=== PATIENT | female | born 1995 | race Caucasian/White ===

== ENCOUNTER 2017-05-24 18:18 | Emergency (ER) | payer SELFPAY ==
[2017-05-24 18:23] VITALS: BMI 26.6
[2017-05-24 18:25] VITALS: BP 132/80; PULSE 81; RESP 17; TEMP 98.8; O2SAT 97
[2017-05-24 18:57] LABS: RBC URINE 1271 /hpf (0-3); URINE BACTERIA MOD (<OCC); URINE BILIRUBIN NEGATIVE (NEGATIVE); URINE BLOOD 3+ (NEGATIVE); URINE GLUCOSE (UA) NORMAL (Normal); URINE KETONE NEGATIVE (NEGATIVE); URINE LEUKOCYTE ESTERASE 2+ Leu/uL (Negative); URINE PROTEIN 2+ mg/dL (NEGATIVE); URINE UROBILINOGEN NORMAL mg/dL (0.2-1.0); WBC CLUMPS MANY /hpf; WBC URINE 2273 /hpf (0-5)
[2017-05-24 19:10] LABS: URINE COLOR YELLOW (YELLOW)
[2017-05-24] MEDS ORDERED: cefTRIAXone (Rocephin) 250 mg Inj IM STA (19:39)
--- NOTE | 2017-05-24 20:22 | C.PDOC ---
History Of Present Illness 22 year old female presents to the ED with complaints of dysuria and associated hematuria for two days. Patient reports vaginal discharge described as "yellow and foul smelling." She denies abdominal pain, vaginal bleeding, travel, back pain, chest pain, SOB, fever, nausea, or vomiting. Time Seen by Provider: 05/24/17 18:45 Chief Complaint (Nursing): Female Genitourinary History Per: Patient History/Exam Limitations: no limitations Onset/Duration Of Symptoms: Days (2 days ) Current Symptoms Are (Timing): Still Present Pain Scale Rating Of: 0 Associated Symptoms: Urinary Symptoms (dysuria and hematuria ). denies: Fever, Chills, Nausea, Vomiting Recent travel outside of the [place]: No Abnormal Vaginal Bleeding: No Past Medical History Reviewed: Historical Data, Nursing Documentation, Vital Signs Vital Signs: Last Vital Signs Temp 98.8 F 05/24/17 18:23 Pulse 81 05/24/17 18:23 Resp 17 05/24/17 18:23 BP 132/80 05/24/17 18:23 Pulse Ox 97 05/24/17 20:44 - Medical History PMH: No Chronic Diseases Family History: States: No Known Family Hx - Social History Hx Tobacco Use: Yes Hx Alcohol Use: Yes (every other day) Hx Substance Use: No - Immunization History Hx Tetanus Toxoid Vaccination: No Hx Influenza Vaccination: No Hx Pneumococcal Vaccination: No Review Of Systems Except As Marked, All Systems Reviewed And Found Negative. Constitutional: Negative for: Fever, Chills Cardiovascular: Negative for: Chest Pain, Palpitations Respiratory: Negative for: Cough, Shortness of Breath Gastrointestinal: Negative for: Nausea, Vomiting, Abdominal Pain, Diarrhea Genitourinary: Positive for: Vaginal Discharge ("yellow and foul discharge" ) Physical Exam - Physical Exam Appears: Non-toxic, No Acute Distress Skin: Warm, Dry Head: Atraumatic, Normacephalic Eye(s): bilateral: Normal Inspection, PERRL, EOMI Oral Mucosa: Moist Neck: Normal ROM, Supple Chest: Symmetrical, No Deformity Cardiovascular: Rhythm Regular, No Friction Rub, No Murmur Respiratory: Normal Breath Sounds, No Rales, No Rhonchi, No Stridor, No Wheezing Gastrointestinal/Abdominal: Soft, No Tenderness, No Distention, No Guarding, No Rebound Pelvic: Other (Deferred by patient) Neurological/Psych: Oriented x3, Normal Speech, Normal Motor Gait: Steady ED Course And Treatment O2 Sat by Pulse Oximetry: 97 (room air ) Pulse Ox Interpretation: Normal Medical Decision Making Medical Decision Making: Labs were ordered UA was (+) for UTI. Urine culture was sent. The patient is concerned for possible vaginitis and was instructed to have all partners tested. Rocephin and Zithromax ordered. Disposition - Disposition Referrals: [facility] [Outside] Disposition: HOME/ ROUTINE Disposition Time: 20:19 Condition: GOOD Additional Instructions: Follow up with the OBGYN within 1-2 days, Return if worsened. 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 - Scribe Statement The provider has reviewed the documentation as recorded by the Scribe Ann Ortiz All medical record entries made by the Akash were at my direction and personally dictated by me. I have reviewed the chart and agree that the record accurately reflects my personal performance of the history, physical exam, medical decision making, and the department course for this patient. I have also personally directed, reviewed, and agree with the discharge instructions and disposition.
== END 2017-05-24 20:31 | disposition home or self-care (01) ==
LOC: C.ER 18:18
DX: N39.0 Urinary tract infection, site not specified (principal)
CPT/HCPCS: 81001; 84703; 87086; 87491; 87591; 96372; 99284; J0696

== ENCOUNTER 2017-11-21 11:16 | Emergency (ER) | payer OTHER ==
[2017-11-21 11:17] VITALS: BMI 26.6
[2017-11-21 11:33] VITALS: RESP 18
[2017-11-21] MEDS ORDERED: Lidocaine 1% Inj (20ml) INFIL ONE (12:12)
[2017-11-21] MEDS ORDERED: Lidocaine 2% Inj (20ml) ONE (12:17)
[2017-11-21] MEDS ORDERED: Oxycodone/Acetaminophen 5/325 mg Tab PO STA (12:29)
[2017-11-21] MEDS ORDERED: Oxycodone/Acetaminophen 5/325 mg Tab ONE (12:33)
--- NOTE | 2017-11-21 13:43 | C.PDOC ---
History Of Present Illness 22 y/o female c/o pain and swelling to buttock x 2 days, unable to sit. no fever , no prior episodes, no hx diabetes. Time Seen by Provider: 11/21/17 12:08 Chief Complaint (Nursing): Abnormal Skin Integrity History/Exam Limitations: no limitations Onset/Duration Of Symptoms: Days (2) Location Of Injury: Left: Buttock Quality Of Symptoms: Painful, Swollen. denies: Draining Severity: Moderate Past Medical History Reviewed: Historical Data, Nursing Documentation, Vital Signs Vital Signs: Last Vital Signs Temp 98.3 F 11/21/17 13:52 Pulse 60 11/21/17 13:52 Resp 18 11/21/17 13:52 BP 128/83 11/21/17 13:52 Pulse Ox 99 11/21/17 15:35 - Medical History PMH: No Chronic Diseases Family History: States: Unknown Family Hx - Social History Hx Tobacco Use: Yes Hx Alcohol Use: Yes (every other day) Hx Substance Use: No - Immunization History Hx Tetanus Toxoid Vaccination: No Hx Influenza Vaccination: No Hx Pneumococcal Vaccination: No Review Of Systems Constitutional: Negative for: Fever, Chills Gastrointestinal: Negative for: Abdominal Pain Skin: Positive for: Lesions (swelling left buttock) Neurological: Negative for: Weakness, Numbness Physical Exam - Physical Exam Appears: Non-toxic, Other (uncomfortable from pain. ) Skin: Warm, Dry, Other (2 cm wide x 4 cm long indurated fluctuant tender area to left of proximal gluteal crease. no drainage. ) Head: Atraumatic, Normacephalic Gastrointestinal/Abdominal: Soft, No Tenderness Neurological/Psych: Oriented x3, Normal Speech, Normal Cognition ED Course And Treatment O2 Sat by Pulse Oximetry: 99 - Incision & Drainage Of Abscess Anesthesia: Lidocaine 2% Prep Used: Sterile Water, Betadine Procedure: Incised W/Scalpel Blade#: (11), Drained Pus, Irrigated Cavity W/ Saline, Probed To Break Up Loculations, Packed W/Gauze Medical Decision Making Medical Decision Making: left sided pilonidal abscess; i and d done,, pt tolerated procedure well, packing inserted, pt to return to ED in 2 days for wound check, started on augmentin. Disposition Counseled Patient/Family Regarding: Diagnosis, Need For Followup, Rx Given - Disposition Disposition: HOME/ ROUTINE Disposition Time: 13:40 Condition: IMPROVED Additional Instructions: Please keep area clean and dry. Return to ER in 2 days for a wound check. Motrin for pain every 6 hours if needed. Prescriptions: Amoxicillin/Clavulanate [Augmentin 875 MG-125 MG] 1 tab PO BID #14 tab Ibuprofen [Motrin] 600 mg PO TID #30 tab Instructions: Abscess Incision and Drainage (DC), Pilonidal Cyst (DC) Forms: [facility] (Yoruba), General Discharge Instructions - Clinical Impression Clinical Impression: Pilonidal abscess
[2017-11-21] MEDS ORDERED: Amoxicillin-Clav 875-125 mg Tab PO STA (13:45)
[2017-11-21] MEDS ORDERED: Amoxicillin-Clav 875-125 mg Tab PO ONE (13:47)
[2017-11-21 13:58] VITALS: BP 128/83; PULSE 60; TEMP 98.3
[2017-11-21 15:27] VITALS: O2SAT 99
== END 2017-11-21 13:52 | disposition home or self-care (01) ==
LOC: C.ER 11:16
DX: L05.01 Pilonidal cyst with abscess (principal)
CPT/HCPCS: 10080; 96372; 99284; J1885

== ENCOUNTER 2017-11-23 15:18 | Emergency (ER) | payer OTHER ==
[2017-11-23 15:18] VITALS: BMI 26.6
[2017-11-23 15:34] VITALS: BP 146/89; PULSE 97; RESP 18; TEMP 99.3; O2SAT 99
--- NOTE | 2017-11-23 15:49 | C.PDOC ---
History Of Present Illness 22-year-old female, presents to the emergency department for wound check, patient is s/p left buttock I&D two days ago. She is taking antibiotics. denies fever, increased pain or discharge from wound. Time Seen by Provider: 11/23/17 15:40 Chief Complaint (Nursing): Wound Check History Per: Patient History/Exam Limitations: no limitations Onset/Duration Of Symptoms: Days Ago (2) Past Medical History Reviewed: Historical Data, Nursing Documentation, Vital Signs Vital Signs: Last Vital Signs Temp 99.3 F 11/23/17 15:33 Pulse 97 H 11/23/17 15:33 Resp 18 11/23/17 15:33 BP 146/89 11/23/17 15:33 Pulse Ox 99 11/23/17 16:28 Family History: States: No Known Family Hx - Social History Hx Tobacco Use: Yes Hx Alcohol Use: Yes (every other day) Hx Substance Use: No - Immunization History Hx Tetanus Toxoid Vaccination: No Hx Influenza Vaccination: No Hx Pneumococcal Vaccination: No Review Of Systems Musculoskeletal: Positive for: Other (Left buttock wound check) Physical Exam - Physical Exam Appears: Well, Non-toxic, No Acute Distress Skin: Normal Color, Warm, Other ((+) Left gluteus small open wound with packing , no erythema, no flactulance, no discharges noted.) Extremity: Normal ROM Neurological/Psych: Oriented x3, Normal Speech ED Course And Treatment O2 Sat by Pulse Oximetry: 99 (RA) Pulse Ox Interpretation: Normal Progress Note: On re-eval, pt is afebrile, hemodynamicaly stable. Non-toxic. Abd: benign. Skin: wound cleaned, packing removed from left gluteal wound nad irrigated. No dischages noted, no erythema, no flactulance. Pt advisec ont. abx. ref. to F/u with PMD, Surgery in 2-3 days for re-eavl. reutrn if any worsening or new changes. Disposition - Disposition Disposition: HOME/ ROUTINE Disposition Time: 15:47 Condition: STABLE Instructions: Abscess Incision and Drainage (DC) Forms: [employer] (Bangladeshi) - Clinical Impression Clinical Impression: Pilonidal abscess - Scribe Statement The provider has reviewed the documentation as recorded by the Scribe (Gita Lamar) All medical record entries made by the Scribe were at my direction and personally dictated by me. I have reviewed the chart and agree that the record accurately reflects my personal performance of the history, physical exam, medical decision making, and the department course for this patient. I have also personally directed, reviewed, and agree with the discharge instructions and disposition.
== END 2017-11-23 16:01 | disposition home or self-care (01) ==
LOC: C.ER 15:18
DX: L05.01 Pilonidal cyst with abscess (principal); Z51.89 Encounter for other specified aftercare; Z72.0 Tobacco use

== ENCOUNTER 2018-04-06 18:46 | Emergency (ER) | payer OTHER ==
[2018-04-06 18:47] VITALS: BMI 26.6
[2018-04-06 18:55] VITALS: BP 151/92; PULSE 88; RESP 16; TEMP 98; O2SAT 98
--- NOTE | 2018-04-06 19:27 | C.PDOC ---
History Of Present Illness 23 year old female patient with hx of pilondial cyst presents to the ER with complaints of pain and swelling on her top left intergluteal cleft for 2 days. The site started to drain during her ER visit today and some pus and blood was drained out. no fever or chills. Time Seen by Provider: 04/06/18 19:02 Chief Complaint (Nursing): Abnormal Skin Integrity History Per: Patient History/Exam Limitations: no limitations Onset/Duration Of Symptoms: Days Past Medical History Reviewed: Historical Data, Nursing Documentation, Vital Signs Vital Signs: Last Vital Signs Temp 98 F 04/06/18 18:53 Pulse 88 04/06/18 18:53 Resp 16 04/06/18 18:53 BP 151/92 H 04/06/18 18:53 Pulse Ox 98 04/07/18 02:37 - Medical History PMH: Gastritis Family History: States: Unknown Family Hx - Social History Hx Tobacco Use: Yes Hx Alcohol Use: Yes (every other day) Hx Substance Use: No - Immunization History Hx Tetanus Toxoid Vaccination: No Hx Influenza Vaccination: No Hx Pneumococcal Vaccination: No Review Of Systems Constitutional: Negative for: Fever, Chills Skin: Positive for: Other (top left intergluteal cleft abscess) Neurological: Negative for: Weakness, Numbness Physical Exam - Physical Exam Appears: Non-toxic, No Acute Distress Skin: No Rash, Other (2 cm draining abscess upper left intergluteal cleft, tender) Head: Atraumatic, Normacephalic Gastrointestinal/Abdominal: Bowel Sounds, Soft, No Tenderness, No Distention Neurological/Psych: Oriented x3, Normal Speech, Normal Cognition ED Course And Treatment O2 Sat by Pulse Oximetry: 98 (RA) Pulse Ox Interpretation: Normal Progress Note: Impression: 23 year old female patient with abscess in her top left intergluteal cleft. Patient is referred to surgery for definitive treatment. Medical Decision Making Medical Decision Making: hx of left pilonidal cyst in past, now spontaneously drainiing. has not seen gen sx. d/c with antibiotics and surgery f/u Disposition Counseled Patient/Family Regarding: Diagnosis, Need For Followup, Rx Given - Disposition Referrals: Gatito Gutierrez MD [Staff Provider] - Disposition: HOME/ ROUTINE Disposition Time: 19:24 Condition: GOOD Additional Instructions: Please continue warm soaks to left buttock for several days to assist with further drainage. Please follow up with Dr Gutierrez (general surgeon) to discuss options for getting rid of cyst. Take antibiotics as prescribed and Tylenol for pain if needed. 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 - Scribe Statement The provider has reviewed the documentation as recorded by the Akash Damon Do All medical record entries made by the Scribe were at my direction and personally dictated by me. I have reviewed the chart and agree that the record accurately reflects my personal performance of the history, physical exam, medical decision making, and the department course for this patient. I have also personally directed, reviewed, and agree with the discharge instructions and disposition.
== END 2018-04-06 19:34 | disposition home or self-care (01) ==
LOC: C.ER 18:46
DX: L05.01 Pilonidal cyst with abscess (principal)

== ENCOUNTER 2018-06-13 14:28 | Emergency (ER) | payer OTHER ==
[2018-06-13 14:28] VITALS: BMI 26.6
[2018-06-13 14:37] VITALS: RESP 18; O2SAT 98
--- NOTE | 2018-06-13 14:48 | C.PDOC ---
History Of Present Illness 23 year old female with no past medical history presents to the ER with 2 days of malodorous and cloudy urine. She states she has also noticed some blood in her urine today. Patient states she also started to have left side pain that began yesterday. She states she cannot describe the pain, but it does not radiate it is an 8/10 pain and moving makes the pain worse. She states he last menstrual period was 2 weeks ago. She is currently sexually active with one partner and she does not use protection. She denies dysuria, fever, chills, palpitations, nausea or vomiting. <Maribel Valladares - Last Filed: 06/13/18 16:36> <Maribel Valladares - Last Filed: 06/13/18 16:36> <Dio Ochoa - Last Filed: 06/14/18 09:51> Chief Complaint (Nursing): Female Genitourinary Past Medical History Vital Signs: Last Vital Signs Temp 101.2 F H 06/13/18 14:34 Pulse 121 H 06/13/18 14:34 Resp 18 06/13/18 14:34 BP 138/85 06/13/18 14:34 Pulse Ox 98 06/13/18 14:34 - Medical History PMH: Gastritis Family History: States: Unknown Family Hx - Social History Hx Tobacco Use: Yes Hx Alcohol Use: Yes (every other day) Hx Substance Use: No - Immunization History Hx Tetanus Toxoid Vaccination: No Hx Influenza Vaccination: No Hx Pneumococcal Vaccination: No <Maribel Valladares - Last Filed: 06/13/18 16:36> Vital Signs: Last Vital Signs Temp 98.4 F 06/13/18 16:35 Pulse 79 06/13/18 16:35 Resp 18 06/13/18 16:35 BP 116/78 06/13/18 16:35 Pulse Ox 98 06/13/18 16:43 <Dio Ochoa - Last Filed: 06/14/18 09:51> Review Of Systems Constitutional: Negative for: Fever, Chills Cardiovascular: Negative for: Chest Pain, Palpitations Gastrointestinal: Negative for: Nausea, Vomiting, Abdominal Pain Genitourinary: Positive for: Hematuria. Negative for: Dysuria, Vaginal Bleeding, Pelvic Pain Musculoskeletal: Positive for: Other (left side pain ) <Keith Valladaresssrudy Moeller - Last Filed: 06/13/18 16:36> Physical Exam - Physical Exam Appears: Non-toxic Skin: Normal Color Head: Atraumatic, Normacephalic Cardiovascular: Rhythm Regular Respiratory: Normal Breath Sounds Gastrointestinal/Abdominal: Soft, No Tenderness, No Distention, No Guarding Back: No CVA Tenderness, Other (left external oblique muscle tenderness) Neurological/Psych: Oriented x3 <Maribel Valladares - Last Filed: 06/13/18 16:36> ED Course And Treatment - Laboratory Results Result Diagrams: 06/13/18 15:37 06/13/18 15:37 Urine POC: Negative O2 Sat by Pulse Oximetry: 98 <Maribel Valladares - Last Filed: 06/13/18 16:36> - Laboratory Results Result Diagrams: 06/13/18 15:37 06/13/18 15:37 <Dio Ochoa - Last Filed: 06/14/18 09:51> Medical Decision Making Medical Decision Making: Pyleonephritis - UA: + urine WBC 292; RBC 129; Leukocyte esterase; nitrates and bilirubin - febrile, tachycardia - f/u urine culture; GC and Chlamydia - Tylenol given once - Rocephin 1gm given once Patient was reassessed and states she was feeling better her pain decreased from an 8/10 to a 4-5/10. Patient's vitals were retaken and patient was afebrile and HR in the 80s. Hypokalemia - K 3.1 - Repleated [id number] <Maribel Valladares - Last Filed: 06/13/18 16:36> Medical Decision Making: patient with pyelonephritis, improved after treatment, po antibiotics trial at home, advised verbally to see pmd within 2 days. <Dio Ochoa Last Filed: 06/14/18 09:51> Disposition Discussed With : Dio Ochoa Doctor Will See Patient In The: ED Counseled Patient/Family Regarding: Studies Performed, Diagnosis, Need For Followup, Rx Given, Smoking Cessation - Disposition Disposition Time: 16:37 <Maribel Valladares - Last Filed: 06/13/18 16:36> <Dio Ochoa Filed: 06/14/18 09:51> - Disposition Referrals: Walter Villalobos MD [Medical Doctor] - Disposition: HOME/ ROUTINE Condition: IMPROVED Additional Instructions: Please start antibiotic one tablet twice a day for 7 days with food. Please take an over the counter probiotic for the next 2 weeks. Take Tylenol for fever or pain every 6 hours as needed. Please follow up with your primary care physician in 1 week. Return to the emergency room if symptoms return or worsen. Thank you for allowing us to participate in your care. 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 / has examined the patient and agrees with the treatment plan. <Maribel Valladares - Last Filed: 06/13/18 16:36>
[2018-06-13 15:33] LABS: SQUAMOUS EPITHIAL 1 /hpf (0-5); URINE BACTERIA RARE (<OCC)
[2018-06-13 15:34] LABS: URINE CLARITY CLOUDY (Clear); URINE COLOR AMBER (YELLOW); URINE GLUCOSE (UA) NEGATIVE (Normal)
[2018-06-13 15:35] LABS: PH,URINE 6.5 (5.0-8.0); URINE BILIRUBIN 2+ (NEGATIVE); URINE BLOOD 3+ (NEGATIVE); URINE LEUKOCYTE ESTERASE 2+ Leu/uL (Negative); URINE PROTEIN 3+ mg/dL (NEGATIVE)
[2018-06-13 15:46] LABS: BASO % 0.2 % (0.0-2.0); EOS % 0.1 % (0.0-4.0); HEMOGLOBIN 11.6 g/dL (11.0-16.0); LYMPH # 0.9 K/uL (1.0-4.3); LYMPH % 9.3 % (20.0-40.0); MEAN CELL VOLUME 80.8 fL (81.0-99.0); MEAN CORPUSCULAR HEMOGLOBIN 26.8 pg (27.0-31.0); MEAN CORPUSCULAR HGB CONC 33.1 g/dL (33.0-37.0); MONO # 0.8 K/uL (0.0-0.8); MONO % 8.8 % (0.0-10.0); NEUT # 7.7 K/uL (1.8-7.0); NEUT % 81.6 % (50.0-75.0); PLATELET COUNT 189 K/uL (130-400); RBC 4.32 Mil/uL (3.80-5.20); RED CELL DISTRIBUTION WIDTH 14.3 % (11.5-14.5); WHITE BLOOD COUNT 9.5 K/uL (4.8-10.8)
[2018-06-13] MEDS ORDERED: cefTRIAXone 1 gm 1 GM/100 ML BAG IVPB ONE (15:59)
[2018-06-13 16:07] LABS: ALB/GLOB RATIO 1.4 (1.0-2.1); ALBUMIN 4.1 g/dL (3.5-5.0); ALT/SGPT 32 U/L (9-52); AST/SGOT 35 U/L (14-36); BLOOD UREA NITROGEN 7 mg/dL (7-17); CALCIUM 9.4 mg/dl (8.6-10.4); GFR NON-AFRICAN AMERICAN > 60
[2018-06-13] MEDS ORDERED: Potassium Chloride 20 mEq ER Tab PO STA (16:12)
[2018-06-13] MEDS ORDERED: Potassium Chloride 20 mEq ER Tab PO ONE (16:24)
[2018-06-13 16:35] VITALS: BP 116/78; PULSE 79; TEMP 98.4
[2018-06-13 17:56] LABS: BANDS 1 % (0-2); LYMPHOCYTE 10 % (20-40); MICROCYTOSIS SLIGHT; MONOCYTE 5 % (0-10); NEUTROPHIL 84 % (50-75); TOTAL CELLS COUNTED 100
[2018-06-13 18:04] LABS: PLATELET ESTIMATE NORMAL (NORMAL)
== END 2018-06-13 16:53 | disposition home or self-care (01) ==
LOC: C.ER 14:28
DX: N12 Tubulo-interstitial nephritis, not specified as acute or chronic (principal)
CPT/HCPCS: 80053; 81001; 85025; 87086; 87181; 87491; 87591; 96365; 99285; J0696